=== PATIENT | female | born 1935 ===

== ENCOUNTER 2023-04-24 15:31 | Outpatient (CLI) | payer MEDICARE, SELFPAY | END 2023-04-24 15:32 | disposition home or self-care (01) | PROVIDERS: PCP Physician Assistant Medical; Visit Provider Family Medicine | DX: I10 Essential (primary) hypertension (principal) | CPT/HCPCS: 80053; 82043; 82570 ==

== ENCOUNTER 2023-09-01 15:28 | Outpatient (CLI) | payer OTHER, SELFPAY ==
[2023-09-01 22:32] LABS: Creatinine Urine 38.3 mg/dL
[2023-09-01 22:36] LABS: Microalbumin Creatinine Ratio 20 mg/g (0-30); Microalbumin Urine 1 mg/dL
== END 2023-09-01 15:29 | disposition home or self-care (01) ==
LOC: FRMREF 15:29
PROVIDERS: PCP Family Medicine; Visit Provider Family Medicine
DX: I10 Essential (primary) hypertension (principal)
CPT/HCPCS: 82043; 82570

== ENCOUNTER 2024-03-25 09:38 | Outpatient (CLI) | payer OTHER, SELFPAY | END 2024-03-25 09:39 | disposition home or self-care (01) | LOC: FRMREF 09:39 | PROVIDERS: PCP Family Medicine; Visit Provider Family Medicine | DX: I10 Essential (primary) hypertension (principal); N32.81 Overactive bladder | CPT/HCPCS: 80053; 87086; 87186 ==

== ENCOUNTER 2024-04-06 10:45 | Outpatient (CLI) | payer OTHER, SELFPAY | END 2024-04-06 10:46 | disposition home or self-care (01) | LOC: NFLDREF 04-07 01:47 | PROVIDERS: PCP Family Medicine; Referring Provider Family Medicine; Visit Provider Physician Assistant Medical | DX: N39.0 Urinary tract infection, site not specified (principal) | CPT/HCPCS: 87086 ==